=== PATIENT | female | born 1960 | race Caucasian/White ===

== ENCOUNTER 2017-10-15 16:42 | Emergency (ER) | payer MEDICAID ==
[2017-10-15] MEDS ORDERED: Sodium Chloride 0.9% 1,000 ML IV ONE (16:48)
[2017-10-15] MEDS ORDERED: Sodium Chloride 0.9% 2.5 ML Syringe FLUSH PRN (16:48)
[2017-10-15] MEDS ORDERED: Sodium Chloride 0.9% 10 ML Syringe FLUSH PRN (16:48)
--- NOTE | 2017-10-15 16:57 | EDM.PDOC ---
ED HPI GENERAL MEDICAL PROBLEM - General Chief Complaint: Neurological Problem Stated Complaint: SEIZURE Time Seen by Provider: 10/15/17 16:50 Source of Information: Reports: Patient, EMS History Limitations: Reports: No Limitations - History of Present Illness INITIAL COMMENTS - FREE TEXT/NARRATIVE: HISTORY AND PHYSICAL: History of present illness: [Cleopatra is a 57-year-old female who arrived to the ED via EMS for seizure. Per patient and EMS, patient was shopping at [employer] and reports she passed out and hit her head on the concrete floor. She states she does not recall what happened before, during, and after this. Daughter was with her and she states she had stopped and just fell backwards and hit her head. She became really stiff and was shaking for about 1-5 minutes. No generalized tonic-clonic type movements. She states she has had 1 episode of seizure-like activity in the past. She saw neurology for this and believes she had a brain MRI and EEG which were normal. She is not currently taking any medications including anticonvulsants. Patient reports pain in her head as well as her right upper arm. She is uncertain if she may have landed on her right arm. She denies any fevers, vomiting, diarrhea, abdominal pain, change in vision. Patient denies smoking, chewing tobacco, illicit drug, or alcohol use ] 1830: family reported to nurse that patient is an alcoholic. Drinks 3-6 beers daily. Has had 4 shots of liquor today and 4 yesterday but no beer today. Review of systems: As per history of present illness and below otherwise all systems reviewed and negative. Past medical history: As per history of present illness and as reviewed below otherwise noncontributory. Surgical history: As per history of present illness and as reviewed below otherwise noncontributory. Social history: see HPI Family history: As per history of present illness and as reviewed below otherwise noncontributory. Physical exam: HEENT: There is a 2.5cm laceration to the occipital scalp. normocephalic, pupils reactive, negative for conjunctival pallor or scleral icterus, mucous membranes moist, throat clear, neck supple, nontender, trachea midline. Lungs: Clear to auscultation, breath sounds equal bilaterally, chest nontender. Heart: S1S2, regular, negative for clicks, rubs, or JVD. Abdomen: Soft, nondistended, nontender. Negative for masses or hepatosplenomegaly. Negative for costovertebral tenderness. Pelvis: Stable nontender. Genitourinary: Deferred. Rectal: Deferred. Extremities: Tenderness to palpation of right humerus. Pain with ROM of right elbow. No pain with palpation or ROM of right shoulder. negative for cords or calf pain. Neurovascular unremarkable. Neuro: Awake, alert, oriented. Cranial nerves II through XII unremarkable. Cerebellum unremarkable. Motor and sensory unremarkable throughout. Exam nonfocal. Notes: Discussed with patient and family admitting to ICU for potential alcohol withdrawal and observation following syncopal episode. They declined and would like to go home and monitor patient at home. We discussed signs and symptoms and reasons to return to ED. Discussed scapula fracture with ortho on-call, edgard Heller recommended with close ortho follow-up. Diagnostics: [CBC, CMP, Magnesium, UA, urine drug screen, Troponin, EKG - PVCs noted Head CT, Cervical CT, CXR, x-ray right elbow and humerus] Therapeutics: [1L NS Toradol 30mg IV Magnesium 2 gram] Impression: [Syncope vs seizure Scapula fracture Head injury/laceration Concussion ] Plan: [#1 Wear sling as instructed and take tramadol as needed as directed for pain #2 Follow up with orthopedic clinic and primary care #3 Return to ED as needed as discussed ] Definitive disposition and diagnosis as appropriate pending reevaluation and review of above. Right Arm Pain Score (Numeric/FACES): 9 - Related Data Allergies Allergy/AdvReac Type Severity Reaction Status Date / Time No Known Allergies Allergy Verified 10/15/17 19:17 Home Meds: Home Meds . [No Known Home Meds] 10/15/17 [History] ED ROS GENERAL - Review of Systems Review Of Systems: ROS reveals no pertinent complaints other than HPI. - Physical Exam Exam: See Below (see dictation) ED PROCEDURES - Laceration/Wound Repair Occipital Head Lac/wound length in cm: 2.5 Appearance: Superficial Distal NVT: Neuro & Vascular Intact, No Tendon Injury Skin Prep: Chlorhexidine (Hibiciens), Saline Saline irrigation (cc's): 250 Exploration/Debridement/Repair: Wound Explored, In a Bloodless Field, Explored to Base Closed with: Warren # of Sutures: 5 Course - Vital Signs Last Recorded V/S: Last Vital Signs Temp 36.3 C 10/15/17 17:00 Pulse 105 H 10/15/17 19:12 Resp 18 10/15/17 19:12 BP 139/72 10/15/17 19:12 Pulse Ox 100 10/15/17 19:12 - Orders/Labs/Meds Orders: Active Orders 24 hr Category Date Time Status Cardiac Monitoring [RC] . DIRECTED Care 10/15/17 17:43 Active EKG Documentation Completion [RC] STAT Care 10/15/17 16:48 Active Cervical Spine wo Cont [CT] Stat Exams 10/15/17 16:56 Taken Chest 1V Frontal [CR] Stat Exams 10/15/17 16:48 Taken Elbow 2V Rt [CR] Stat Exams 10/15/17 17:13 Taken Head wo Cont [CT] Stat Exams 10/15/17 16:56 Taken Humerus Rt [CR] Stat Exams 10/15/17 17:13 Taken DRUG SCREEN, URINE [URCHEM] Stat Lab 10/15/17 16:48 Ordered UA W/MICROSCOPIC [URIN] Stat Lab 10/15/17 16:48 Ordered Magnesium Sulfate/Water [Magnesium Sulfate 2 GM in Med 10/15/17 18:09 Active Water 50 ML] 2 gm Premix Bag 1 bag IV ONETIME Sodium Chloride 0.9% [Saline Flush] Med 10/15/17 16:48 Active 10 ml FLUSH ASDIRECTED PRN Sodium Chloride 0.9% [Saline Flush] Med 10/15/17 16:48 Active 2.5 ml FLUSH ASDIRECTED PRN Saline Lock Insert [OM.PC] Stat Oth 10/15/17 16:46 Ordered Medication Orders Magnesium Sulfate 2 gm/ Premix 50 mls @ 25 mls/hr IV ONETIME ONE Stop: 10/15/17 20:08 Last Admin: 10/15/17 18:54 Dose: 25 mls/hr Sodium Chloride (Saline Flush) 10 ml FLUSH ASDIRECTED PRN PRN Reason: Keep Vein Open Sodium Chloride (Saline Flush) 2.5 ml FLUSH ASDIRECTED PRN PRN Reason: Keep Vein Open Labs: Laboratory Tests 10/15/17 10/15/17 10/15/17 Range/Units 17:00 17:00 17:00 WBC 9.61 (4.0-11.0) K/uL RBC 3.88 L (4.50-5.90) M/uL Hgb 15.4 (13.0-17.0) g/dL Hct 43.1 (38.0-50.0) % MCV 111.1 H (80.0-98.0) fL MCH 39.7 H (27.0-32.0) pg MCHC 35.7 (31.0-37.0) g/dL RDW Std Deviation 53.6 (28.0-62.0) fl RDW Coeff of Les 13 (11.0-15.0) % Plt Count 152 (150-400) K/uL MPV 11.50 (7.40-12.00) fL Neut % (Auto) 62.3 (48.0-80.0) % Lymph % (Auto) 27.7 (16.0-40.0) % Mcdonald % (Auto) 9.1 (0.0-15.0) % Eos % (Auto) 0.6 (0.0-7.0) % Baso % (Auto) 0.3 (0.0-1.5) % Neut # (Auto) 6.0 H (1.4-5.7) K/uL Lymph # (Auto) 2.7 H (0.6-2.4) K/uL Mcdonald # (Auto) 0.9 H (0.0-0.8) K/uL Eos # (Auto) 0.1 (0.0-0.7) K/uL Baso # (Auto) 0.0 (0.0-0.1) K/uL Nucleated RBC % 0.0 /100WBC Nucleated RBCs # 0 K/uL INR 1.25 Sodium 133 L (136-145) mmol/L Potassium 3.1 L (3.5-5.1) mmol/L Chloride 96 L (98-107) mmol/L Carbon Dioxide 27.8 (21.0-32.0) mmol/L BUN 11 (7.0-18.0) mg/dL Creatinine 1.0 (0.6-1.0) mg/dL Est Cr Clr Drug Dosing TNP Estimated GFR (MDRD) 57.4 ml/min Glucose 155 H (74-106) mg/dL Calcium 9.1 (8.5-10.1) mg/dL Magnesium 1.2 L (1.8-2.4) mg/dL Total Bilirubin 2.5 H (0.2-1.0) mg/dL AST 90 H (15-37) IU/L ALT 45 (14-63) IU/L Alkaline Phosphatase 210 H (46-116) U/L Troponin I < 0.050 (0.000-0.056) ng/mL Total Protein 7.8 (6.4-8.2) g/dL Albumin 3.7 (3.4-5.0) g/dL Globulin 4.1 H (2.0-3.5) g/dL Albumin/Globulin Ratio 0.9 L (1.3-2.8) Meds: Medications Generic Name Dose Route Start Last Admin Trade Name Freq PRN Reason Stop Dose Admin Magnesium Sulfate 2 gm/ Premix 50 mls @ 25 mls/hr 10/15/17 18:09 10/15/17 18: 54 IV 10/15/17 20:08 25 mls/hr ONETIME ONE Administration Sodium Chloride 10 ml 10/15/17 16:48 Saline Flush FLUSH ASDIRECTED PRN Keep Vein Open Sodium Chloride 2.5 ml 10/15/17 16:48 Saline Flush FLUSH ASDIRECTED PRN Keep Vein Open Discontinued Medications Generic Name Dose Route Start Last Admin Trade Name Freq PRN Reason Stop Dose Admin Sodium Chloride 1,000 mls @ 999 mls/hr 10/15/17 16:48 10/15/17 17:39 Normal Saline IV 10/15/17 17:48 999 mls/hr STAT ONE Administration Ketorolac Tromethamine 30 mg 10/15/17 17:32 10/15/17 17:39 Toradol IVPUSH 10/15/17 17:33 30 mg ONETIME ONE Administration Departure - Departure Time of Disposition: 20:07 Disposition: Home, Self-Care 01 Condition: Good Clinical Impression: Head injury, Laceration, Concussion, Scapula fracture, Syncopal episodes - Discharge Information Referrals: PCP,None [Primary Care Provider] - Forms: ED Department Discharge Additional Instructions: The following information is given to patients seen in the emergency department who are being discharged to home. This information is to outline your options for follow-up care. We provide all patients seen in our emergency department with a follow-up referral. The need for follow-up, as well as the timing and circumstances, are variable depending upon the specifics of your emergency department visit. If you don't have a primary care physician on staff, we will provide you with a referral. We always advise you to contact your personal physician following an emergency department visit to inform them of the circumstance of the visit and for follow-up with them and/or the need for any referrals to a consulting specialist. The emergency department will also refer you to a specialist when appropriate. This referral assures that you have the opportunity for follow-up care with a specialist. All of these measure are taken in an effort to provide you with optimal care, which includes your follow-up. Under all circumstances we always encourage you to contact your private physician who remains a resource for coordinating your care. When calling for follow-up care, please make the office aware that this follow-up is from your recent emergency room visit. If for any reason you are refused follow-up, please contact the [facility] Emergency Department at and asked to speak to the emergency department charge nurse. [facility] Specialty Care - Orthopedic Clinic Professional Building [address] [place] [address], [address] [place] [address] [facility] [address] [place] [id number] #1 Wear sling as instructed and take tramadol as needed as directed for pain #2 Follow up with orthopedic clinic and primary care #3 Return to ED as needed as discussed - My Orders Last 24 Hours: My Active Orders 10/15/17 16:46 Saline Lock Insert [OM.PC] Stat 10/15/17 16:48 EKG Documentation Completion [RC] STAT Chest 1V Frontal [CR] Stat DRUG SCREEN, URINE [URCHEM] Stat UA W/MICROSCOPIC [URIN] Stat Sodium Chloride 0.9% [Saline Flush] 10 ml FLUSH ASDIRECTED PRN Sodium Chloride 0.9% [Saline Flush] 2.5 ml FLUSH ASDIRECTED PRN 10/15/17 16:56 Cervical Spine wo Cont [CT] Stat Head wo Cont [CT] Stat 10/15/17 17:13 Elbow 2V Rt [CR] Stat Humerus Rt [CR] Stat 10/15/17 17:43 Cardiac Monitoring [RC] . DIRECTED 10/15/17 18:09 Magnesium Sulfate/Water [Magnesium Sulfate 2 GM in Water 50 ML] 2 gm Premix Bag 1 bag IV ONETIME - Assessment/Plan Last 24 Hours: My Active Orders 10/15/17 16:46 Saline Lock Insert [OM.PC] Stat 10/15/17 16:48 EKG Documentation Completion [RC] STAT Chest 1V Frontal [CR] Stat DRUG SCREEN, URINE [URCHEM] Stat UA W/MICROSCOPIC [URIN] Stat Sodium Chloride 0.9% [Saline Flush] 10 ml FLUSH ASDIRECTED PRN Sodium Chloride 0.9% [Saline Flush] 2.5 ml FLUSH ASDIRECTED PRN 10/15/17 16:56 Cervical Spine wo Cont [CT] Stat Head wo Cont [CT] Stat 10/15/17 17:13 Elbow 2V Rt [CR] Stat Humerus Rt [CR] Stat 10/15/17 17:43 Cardiac Monitoring [RC] . DIRECTED 10/15/17 18:09 Magnesium Sulfate/Water [Magnesium Sulfate 2 GM in Water 50 ML] 2 gm Premix Bag 1 bag IV ONETIME
[2017-10-15] MEDS ORDERED: Ketorolac 30 MG/ML SDV IVPUSH ONE (17:32)
[2017-10-15 17:38] LABS: CHLORIDE,CL 96 mmol/L (98-107); SODIUM,NA 133 mmol/L (136-145)
[2017-10-15] MEDS ORDERED: Magnesium Sulfate/Water 2 GM in Premix Bag 1 BAG IV ONE (18:09)
--- NOTE | 2017-10-16 15:39 | CT ---
EXAM DATE: 10/15/17 PATIENT'S AGE: 57 Patient: DONNELL MCKINNEY Facility: [place], [place] Site . Site : 1960 Study: CT Spine Cervical [id number]/5/2018 6:09:52 PM Ordering Physician: Doctor Tucker Final Report: INDICATION: Syncope, head trauma TECHNIQUE: CT cervical spine without contrast. COMPARISON: None FINDINGS: Vertebral alignment: Alignment is normal. Vertebrae: There are no fractures or suspicious bony lesions. Discs and facet joints: There are degenerative disc changes at C5-6 and C6-7. There are mild multilevel degenerative changes in the facets. Extraspinal findings: Paraspinous soft tissues are unremarkable. IMPRESSION: 1. No sign of acute injury. 2. Multilevel degenerative spondylosis. Please note that all CT scans at this facility use dose modulation, iterative reconstruction, and/or weight-based dosing when appropriate to reduce radiation dose to as low as reasonably achievable. Dictated by Mohini Duque MD @ Oct 15 2017 6:46PM (Electronic Signature) Report Signed by Proxy. [facility]
--- NOTE | 2017-10-16 15:40 | CT ---
EXAM DATE: 10/15/17 PATIENT'S AGE: 57 Patient: DONNELL MCKINNEY Facility: [place], [place] Site . Site : 1960 Study: CT Head [id number]/5/2018 6:13:27 PM Ordering Physician: Doctor Tucker Final Report: INDICATION: syncope/hit head TECHNIQUE: Noncontrast scans obtained from the foramen magnum through the vertex. COMPARISON: None. FINDINGS: 1. There is a large scalp hematoma at the parietal vertex posteriorly. No associated skull fracture. 2. Mild generalized cerebral atrophy. No intracranial hemorrhage, edema or midline shift. No mass or cortical infarct. 3. Paranasal sinuses, mastoid air cells and middle ears are clear. 4. Arterial calcification in the internal carotid arteries. IMPRESSION: Scalp hematoma. No acute intracranial abnormality. Dictated by Kashif Gomez MD @ 10/15/2017 6:47:54 PM Dictated by: Kashif Gomez MD @ 10/15/2017 18:48:02 (Electronic Signature) Report Signed by Proxy. [facility]
--- NOTE | 2017-10-16 15:41 | CR ---
EXAM DATE: 10/15/17 PATIENT'S AGE: 57 Patient: DONNELL MCKINNEY Facility: [place], [place] Site . Site : 1960 Study: XRay Extremity Right Elbow [id number]/5/2018 6:22:52 PM Ordering Physician: Doctor Tucker Final Report: Indication: Fall, right upper extremity pain Technique: Two views right elbow Comparison: None Findings: Bones: Alignment is normal. No fractures or bone lesions. Joint spaces: Unremarkable. Soft tissues: Unremarkable. Impression: Negative. Dictated by Mohini Duque MD @ Oct 15 2017 6:55PM (Electronic Signature) Report Signed by Proxy. [facility]IKI
--- NOTE | 2017-10-16 15:42 | CR ---
EXAM DATE: 10/15/17 PATIENT'S AGE: 57 Patient: DONNELL MCKINNEY Facility: [place], [place] Site . Site : 1960 Study: XRay Extremity Right Humerus [id number]/5/2018 6:24:56 PM Ordering Physician: Doctor Tucker Final Report: Indication: Right upper extremity pain Technique: Two views right humerus Comparison: None Findings: Bones: There is a moderately displaced, comminuted fracture of the mid to inferior aspect of the right scapula. The glenoid appears grossly intact. Joint spaces: Unremarkable. Soft tissues: Soft tissue swelling around the shoulder joint. Impression: Moderately displaced, comminuted fracture of the right scapula. Recommend CT for further evaluation. Dictated by Mohini Duque MD @ Oct 15 2017 6:55PM (Electronic Signature) Report Signed by Proxy. [facility]
--- NOTE | 2017-10-16 15:43 | CR ---
EXAM DATE: 10/15/17 PATIENT'S AGE: 57 Patient: DONNELL MCKINNEY Facility: [place], [place] Site . Site : 1960 Study: XRay Chest [id number]/5/2018 6:26:11 PM Ordering Physician: Doctor Tucker Final Report: INDICATION: Syncope/fell TECHNIQUE: Chest 1 view COMPARISON: None FINDINGS: Cardiovascular and mediastinum: Heart size and vasculature are normal in caliber and appearance. Mediastinum is within normal limits. Lungs and pleural space: No focal consolidation. No sign of pleural effusion. No pneumothorax. Bones and soft tissues: Degenerative changes. IMPRESSION: No acute cardiopulmonary disease. Dictated by Elliott Zhu MD @ 10/15/2017 6:56:35 PM Dictated by: Elliott Zhu MD @ 10/15/2017 18:56:41 (Electronic Signature) Report Signed by Proxy. [facility]
== END 2017-10-15 20:30 | disposition home or self-care (01) ==
LOC: EDSEX 16:42 → MW.ED 16:42
DX: S06.0X9A Concussion with loss of consciousness of unspecified duration, initial encounter (principal); R55 Syncope and collapse; S42.191A Fracture of other part of scapula, right shoulder, initial encounter for closed fracture; S01.01XA Laceration without foreign body of scalp, initial encounter; W01.10XA Fall on same level from slipping, tripping and stumbling with subsequent striking against unspecified object, initial encounter
CPT/HCPCS: 12001; 36415; 70450; 71045; 72125; 73060; 73070; 80053; 83735; 84484; 85025; 85610; 93005; 96361; 96365; 96375; 99285; J1885; J3475; J7040; 99284